=== PATIENT | female | born 1960 | race Caucasian/White ===

== ENCOUNTER 2019-08-20 16:53 | Inpatient (IN) ==
[2019-08-20] MEDS ORDERED: 0.9 % Sodium Chloride 1,000 ML ONE ×4 (16:56→21:22)
[2019-08-20] MEDS ORDERED: *HR* Ticagrelor 90 MG TABLET ONE (16:56)
[2019-08-20] MEDS ORDERED: *HR* Heparin 5,000 UNIT/ML VIAL ONE (16:56)
[2019-08-20] MEDS ORDERED: Morphine Sulfate 2 MG/ML SYRINGE IVP PRN (16:58)
[2019-08-20] MEDS ORDERED: *HR* Ticagrelor 90 MG TABLET PO ONE (16:58)
[2019-08-20] MEDS ORDERED: *HR* Heparin 5,000 UNIT/ML VIAL IVP ONE ×2 (16:58→17:15)
[2019-08-20] MEDS ORDERED: *HR* Heparin 5,000 UNIT/ML VIAL IVP PRN ×2 (16:58)
[2019-08-20] MEDS ORDERED: Ondansetron 4 MG/2 ML VIAL ONE (17:00)
[2019-08-20] MEDS ORDERED: Heparin 25,000 UNIT/250 ML D5W 25,000 UNIT/250 ML IV.SOLN IVC SCH (17:00)
[2019-08-20 17:23] LABS: Basophils # 0.1 K/mcL (0.0-0.2); Basophils % 0.4 %; Eosinophils % 0.3 %; Hematocrit 36.1 % (35.3-44.9); Hemoglobin 11.6 g/dL (11.5-15.4); Immature Granulocytes % 0.4 % (0-4); Lymphocytes % 8.4 %; Mean Corpuscular HGB Conc 32.1 g/dL (31.6-35.5); Mean Corpuscular Hemoglobin 30.9 pg (28.0-33.3); Mean Platelet Volume 9.5 fL (9.4-12.4); Monocytes # 0.7 K/mcL (0.0-1.3); Neutrophils # 10.4 K/mcL (1.6-8.9); Platelet Count 320 K/mcL (140-400); Red Blood Count 3.76 M/mcL (3.82-4.97); Red Cell Distribution Width 17.2 % (11.5-14.5); Segmented Neutrophils % 84.5 %; White Blood Count 12.3 K/mcL (4.3-11.1)
[2019-08-20 17:30] LABS: Prothrombin Time 11.4 Seconds (9.4-12.1)
[2019-08-20] MEDS ORDERED: *HR* FentaNYL (PF) 100 MCG/2 ML VIAL ONE (17:31)
[2019-08-20] MEDS ORDERED: *HR* Midazolam HCl 2 MG/2 ML VIAL ONE (17:31)
[2019-08-20] MEDS ORDERED: *HR* Heparin 10,000 UNIT/10 ML VIAL ONE (17:31)
[2019-08-20] MEDS ORDERED: ISOVUE-370 200 ML INFUS..BTL ONE ×2 (17:31→18:08)
[2019-08-20] MEDS ORDERED: Tirofiban 12.5 MG/250ML 12.5 MG/250 ML BAG ONE (17:31)
[2019-08-20] MEDS ORDERED: Heparin 1,000 UNITS/500 mL 500 ML ONE (17:31)
[2019-08-20] MEDS ORDERED: Nitroglycerin 1,000 MCG/10 ML VIAL IV ONE (17:32)
[2019-08-20 17:33] LABS: Activated Partial Thrombo Time 23.8 Seconds (26.0-36.0)
[2019-08-20 17:42] LABS: BUN/Creatinine Ratio 28 (6-26); Blood Urea Nitrogen 20 mg/dL (8-23); Calcium 8.8 mg/dL (8.6-10.3); Carbon Dioxide 21 mEq/L (23-29); Chloride 102 mEq/L (98-107); Glucose 231 mg/dL (70-105); Magnesium 1.8 mg/dL (1.6-2.6); Osmolality,Calculated 284 (280-300); Potassium 4.5 mEq/L (3.5-5.1); Sodium 132 mEq/L (136-145); eGFR For African Americans > 60 (> 60); eGFR For Non-African Americans > 60 (> 60)
[2019-08-20 17:43] LABS: Troponin I < 0.03 ng/mL (< 0.04)
[2019-08-20] MEDS ORDERED: Tirofiban 12.5 MG/250ML 12.5 MG/250 ML BAG IVC SCH (17:45)
[2019-08-20] MEDS ORDERED: *HR* Atropine Sulfate 1 MG/10 ML SYRINGE ONE ×2 (18:06→21:15)
[2019-08-20] MEDS: *HR* Ticagrelor 90 MG TABLET PO SCH (19:25)
[2019-08-21 04:40] LABS: Basophils % 0.4 %; Eosinophils # 0.2 K/mcL (0.0-0.6); Eosinophils % 1.7 %; Hemoglobin 10.4 g/dL (11.5-15.4); Immature Granulocytes % 0.5 % (0-4); Lymphocytes # 1.8 K/mcL (0.6-4.6); Lymphocytes % 16.5 %; Mean Corpuscular HGB Conc 31.5 g/dL (31.6-35.5); Mean Corpuscular Hemoglobin 30.3 pg (28.0-33.3); Mean Corpuscular Volume 96.2 fL (83.0-100.0); Mean Platelet Volume 9.5 fL (9.4-12.4); Monocytes % 8.8 %; Platelet Count 277 K/mcL (140-400); Red Blood Count 3.43 M/mcL (3.82-4.97); Red Cell Distribution Width 17.9 % (11.5-14.5); Segmented Neutrophils % 72.1 %
[2019-08-21 05:01] LABS: BUN/Creatinine Ratio 26 (6-26); Blood Urea Nitrogen 15 mg/dL (8-23); Carbon Dioxide 23 mEq/L (23-29); Chloride 106 mEq/L (98-107); Glucose 96 mg/dL (70-105); Osmolality,Calculated 281 (280-300); Sodium 135 mEq/L (136-145); eGFR For African Americans > 60 (> 60); eGFR For Non-African Americans > 60 (> 60)
[2019-08-21] MEDS: Aspirin 81 MG TAB.CHEW PO SCH (08:17)
[2019-08-21] MEDS: *HR* Ticagrelor 90 MG TABLET PO SCH ×2 (08:17→19:10)
[2019-08-21] MEDS ORDERED: Metoprolol XL (24 HR) Succ 25 MG TAB.ER.24H PO SCH (09:00)
[2019-08-21] MEDS: lisinopriL 5 MG TABLET PO SCH (09:29)
[2019-08-21] MEDS: predniSONE 10 MG TABLET PO SCH (10:34)
[2019-08-21] MEDS: Albuterol 2.5 MG/3 ML NEBULIZER IH SCH ×5 (10:42→23:09)
[2019-08-21] MEDS: *HR* Heparin 5,000 UNIT/ML VIAL SQ SCH (17:52)
[2019-08-21] MEDS: Acetaminophen 325 MG TABLET PO PRN (19:10)
[2019-08-22] MEDS: Albuterol 2.5 MG/3 ML NEBULIZER IH SCH ×4 (03:20→15:27)
[2019-08-22 05:10] LABS: Basophils % 0.4 %; Eosinophils # 0.2 K/mcL (0.0-0.6); Eosinophils % 1.9 %; Hematocrit 31.2 % (35.3-44.9); Hemoglobin 10.1 g/dL (11.5-15.4); Immature Granulocytes % 0.6 % (0-4); Lymphocytes % 18.5 %; Mean Corpuscular HGB Conc 32.4 g/dL (31.6-35.5); Mean Corpuscular Hemoglobin 30.6 pg (28.0-33.3); Mean Corpuscular Volume 94.5 fL (83.0-100.0); Mean Platelet Volume 9.4 fL (9.4-12.4); Monocytes # 0.9 K/mcL (0.0-1.3); Monocytes % 8.5 %; Neutrophils # 7.5 K/mcL (1.6-8.9); Platelet Count 291 K/mcL (140-400); Red Cell Distribution Width 17.8 % (11.5-14.5); Segmented Neutrophils % 70.1 %; White Blood Count 10.7 K/mcL (4.3-11.1)
[2019-08-22] MEDS: *HR* Heparin 5,000 UNIT/ML VIAL SQ SCH (05:14)
[2019-08-22 05:28] LABS: BUN/Creatinine Ratio 25 (6-26); Blood Urea Nitrogen 15 mg/dL (8-23); Calcium 8.5 mg/dL (8.6-10.3); Carbon Dioxide 23 mEq/L (23-29); Chloride 104 mEq/L (98-107); Glucose 103 mg/dL (70-105); Magnesium 1.8 mg/dL (1.6-2.6); Osmolality,Calculated 289 (280-300); Potassium 3.5 mEq/L (3.5-5.1); Sodium 139 mEq/L (136-145); eGFR For African Americans > 60 (> 60); eGFR For Non-African Americans > 60 (> 60)
[2019-08-22] MEDS: Acetaminophen 325 MG TABLET PO PRN (05:54)
[2019-08-22] MEDS: Aspirin 81 MG TAB.CHEW PO SCH (07:42)
[2019-08-22] MEDS: *HR* Ticagrelor 90 MG TABLET PO SCH (07:43)
[2019-08-22] MEDS: lisinopriL 5 MG TABLET PO SCH (07:43)
[2019-08-22] MEDS: predniSONE 10 MG TABLET PO SCH (07:43)
[2019-08-22] MEDS ORDERED: *HR* Methotrexate 2.5 MG TABLET PO SCH (09:00)
[2019-08-22] MEDS ORDERED: Folic Acid 1 MG TABLET PO SCH (09:00)
[2019-08-22 15:27] VITALS: BP 115/65
== END 2019-08-22 16:58 | disposition home or self-care (01) | DRG 250 ==
LOC: EMEROOARM 16:53 → ICNU 18:32
PROVIDERS: ADMIT Internal Medicine Cardiovascular Disease; ATTEND Internal Medicine Cardiovascular Disease

== ENCOUNTER 2021-02-15 04:35 | Inpatient (IN) ==
[2021-02-15 06:08] LABS: Alanine Aminotransferase 12 Units/L (7-52); Albumin 3.9 g/dL (3.5-5.7); Albumin/Globulin Ratio 1.2 (1.1-2.2); Alkaline Phosphatase 65 Units/L (34-104); Aspartate Amino Transferase 25 Units/L (13-39); BUN/Creatinine Ratio 20 (6-26); Bilirubin,Direct 0.1 mg/dL (0.0-0.2); Bilirubin,Indirect 0.7 mg/dL (0.0-1.0); Bilirubin,Total 0.8 mg/dL (0.3-1.0); Blood Urea Nitrogen 13 mg/dL (8-23); Carbon Dioxide 23 mEq/L (23-29); Chloride 106 mEq/L (98-107); Globulin 3.2 g/dL (2.4-3.5); Glucose 119 mg/dL (70-105); Osmolality,Calculated 285 (280-300); Potassium 4.5 mEq/L (3.5-5.1); Sodium 137 mEq/L (136-145); Total Protein 7.1 g/dL (6.4-8.9); Troponin I 0.04 ng/mL (< 0.04); eGFR For African Americans > 60 (> 60); eGFR For Non-African Americans > 60 (> 60)
[2021-02-15 06:27] LABS: Basophils # 0.1 K/mcL (0.0-0.2); Basophils % 0.5 %; Eosinophils # 0.4 K/mcL (0.0-0.6); Hematocrit 32.8 % (35.3-44.9); Hemoglobin 11.3 g/dL (11.5-15.4); INR 1.1; Immature Granulocytes % 0.3 % (0-4); Lymphocytes # 1.1 K/mcL (0.6-4.6); Lymphocytes % 10.6 %; Mean Corpuscular HGB Conc 34.5 g/dL (31.6-35.5); Mean Corpuscular Hemoglobin 34.7 pg (28.0-33.3); Mean Corpuscular Volume 100.6 fL (83.0-100.0); Mean Platelet Volume 10.8 fL (9.4-12.4); Monocytes # 0.9 K/mcL (0.0-1.3); Monocytes % 9.2 %; Platelet Count 340 K/mcL (140-400); Red Blood Count 3.26 M/mcL (3.82-4.97); Red Cell Distribution Width 13.8 % (11.5-14.5); Segmented Neutrophils % 75.4 %
[2021-02-15 06:28] LABS: Neutrophils # 7.5 K/mcL (1.6-8.9)
[2021-02-15 06:30] LABS: Activated Partial Thrombo Time 27.9 Seconds (26.0-36.0)
[2021-02-15] MEDS ORDERED: cefTRIAXone 1,000 MG in Water for inj. (sterile) 10 ML IVP ONE (06:32)
[2021-02-15 06:48] LABS: Influenza A PCR Negative (Negative); Influenza B PCR Negative (Negative); Resp. Syncytial Virus PCR Negative (Negative)
[2021-02-15 06:51] LABS: SARS-CoV-2 by PCR (In House) Negative (Negative)
[2021-02-15] MEDS ORDERED: Ipratropium/Albuterol Neb 3 ML IH ONE (08:58)
[2021-02-15] MEDS ORDERED: methylPREDNISolone 125 MG/2 ML VIAL IVP ONE (08:58)
[2021-02-15] MEDS ORDERED: Aspirin 81 MG TAB.CHEW PO STA (10:08)
[2021-02-15] MEDS ORDERED: Perflutren Lipid Microsphere 1.3 ML in 0.9 % Sodium Chloride 8.7 ML IVP PRN (10:25)
[2021-02-15] MEDS ORDERED: Ipratropium/Albuterol Neb 3 ML IH PRN (10:26)
[2021-02-15] MEDS ORDERED: *HR* Enoxaparin 80 MG/0.8 ML SYRINGE SQ SCH (10:30)
[2021-02-15] MEDS: lisinopriL 5 MG TABLET PO SCH (10:47)
[2021-02-15] MEDS ORDERED: Acetaminophen 325 MG TABLET PO PRN (11:49)
[2021-02-15] MEDS ORDERED: Melatonin 3 MG TABLET PO PRN (11:49)
[2021-02-15] MEDS ORDERED: Ondansetron 4 MG/2 ML VIAL IVP PRN (11:49)
[2021-02-15] MEDS: *HR* OxyCODONE Immed Rel 5 MG TABLET PO PRN ×2 (12:42→20:20)
[2021-02-15] MEDS: Ipratropium/Albuterol Neb 3 ML IH SCH ×2 (15:32→19:27)
[2021-02-15] MEDS: Isosorbide MONOnitrate (24 HR) 30 MG TAB.ER.24H PO SCH (17:41)
[2021-02-15] MEDS: *HR* Enoxaparin 80 MG/0.8 ML SYRINGE SQ SCH (20:19)
[2021-02-16] MEDS ORDERED: Prochlorperazine 10 MG/2 ML VIAL IVP PRN (01:25)
[2021-02-16] MEDS ORDERED: Ketorolac 30 MG/ML VIAL IVP ONE (01:26)
[2021-02-16] MEDS: Ipratropium/Albuterol Neb 3 ML IH SCH ×4 (03:37→22:19)
[2021-02-16 05:26] LABS: Hematocrit 29.7 % (35.3-44.9); Hemoglobin 10.2 g/dL (11.5-15.4); Mean Corpuscular HGB Conc 34.3 g/dL (31.6-35.5); Mean Corpuscular Hemoglobin 34.3 pg (28.0-33.3); Mean Platelet Volume 10.1 fL (9.4-12.4); Platelet Count 342 K/mcL (140-400); Red Blood Count 2.97 M/mcL (3.82-4.97); Red Cell Distribution Width 13.8 % (11.5-14.5); White Blood Count 10.8 K/mcL (4.3-11.1)
[2021-02-16 05:40] LABS: BUN/Creatinine Ratio 27 (6-26); Blood Urea Nitrogen 21 mg/dL (8-23); Calcium 8.8 mg/dL (8.6-10.3); Carbon Dioxide 23 mEq/L (23-29); Chloride 107 mEq/L (98-107); Glucose 131 mg/dL (70-105); Osmolality,Calculated 289 (280-300); Potassium 4.4 mEq/L (3.5-5.1); Sodium 137 mEq/L (136-145); eGFR For African Americans > 60 (> 60); eGFR For Non-African Americans > 60 (> 60)
[2021-02-16] MEDS: lisinopriL 5 MG TABLET PO SCH (09:18)
[2021-02-16] MEDS: *HR* Enoxaparin 80 MG/0.8 ML SYRINGE SQ SCH ×2 (09:18→20:35)
[2021-02-16] MEDS: Aspirin 81 MG TAB.CHEW PO SCH (09:19)
[2021-02-16] MEDS: Isosorbide MONOnitrate (24 HR) 30 MG TAB.ER.24H PO SCH (09:19)
[2021-02-16] MEDS: predniSONE 20 MG TABLET PO SCH (09:19)
[2021-02-16] MEDS: cefTRIAXone 1,000 MG in 0.9 % Sodium Chloride Mini Bag 100 ML IVP SCH (09:22)
[2021-02-16] MEDS: Tiotropium 10 INH DOSE IH SCH (09:45)
[2021-02-16] MEDS: Azithromycin 250 MG TABLET PO SCH (13:02)
[2021-02-17] MEDS: Ipratropium/Albuterol Neb 3 ML IH SCH ×2 (03:45→07:46)
[2021-02-17] MEDS: Tiotropium 10 INH DOSE IH SCH (07:47)
[2021-02-17] MEDS: cefTRIAXone 1,000 MG in 0.9 % Sodium Chloride Mini Bag 100 ML IVP SCH (08:39)
[2021-02-17] MEDS: Azithromycin 250 MG TABLET PO SCH (08:43)
[2021-02-17] MEDS: predniSONE 20 MG TABLET PO SCH (08:43)
[2021-02-17] MEDS: Aspirin 81 MG TAB.CHEW PO SCH (08:44)
[2021-02-17] MEDS: lisinopriL 5 MG TABLET PO SCH (08:45)
[2021-02-17] MEDS ORDERED: Isosorbide MONOnitrate (24 HR) 30 MG TAB.ER.24H PO SCH (09:00)
[2021-02-17 10:16] VITALS: BP 153/78; PULSE 65; TEMP 98; O2SAT 93
== END 2021-02-17 14:07 | disposition home or self-care (01) | DRG 871 ==
LOC: EMEROOARM 04:35 → 3BNU 04:35 → SUATTDRO 11:17 → 3BNU 11:25
PROVIDERS: ADMIT Internal Medicine; ATTEND Registered Nurse